=== PATIENT | female | born 1980 | race Caucasian/White ===

== ENCOUNTER 2020-10-17 06:00 | Day surgery (SDC) | payer OTHER, SELFPAY ==
[~2020-10-17] VITALS: Ht 162.6 cm; Wt 63.0 kg
[2020-10-17 06:32] LABS: HCG,QUAL RESULT NEGATIVE (NEGATIVE)
[2020-10-17] MEDS ORDERED: CEFAZOLIN SOD 2 GM in D5W 50 ML IV ONE (07:30)
[2020-10-17] MEDS ORDERED: NEOSTIGMINE METHYLSULFATE 1 MG/ML, 10 ML VIAL IVP ONE (08:09)
[2020-10-17] MEDS ORDERED: MIDAZOLAM HCL 5 MG/5 ML VIAL IVP ONE (08:09)
[2020-10-17] MEDS ORDERED: fentaNYL CITRATE 250 MCG/5 ML AMP IV ONE (08:09)
[2020-10-17] MEDS ORDERED: ROCURONIUM BROMIDE 10 MG/ML (ZEMURON) IV ONE (08:09)
[2020-10-17] MEDS ORDERED: ROPIVACAINE HCL/PF 0.2% EPIDURAL 200 ML PLAST..BAG EP ONE (08:09)
[2020-10-17] MEDS ORDERED: ONDANSETRON HCL 4 MG/2 ML VIAL IVP ONE ×2 (08:09)
[2020-10-17] MEDS ORDERED: WATER FOR IRRIGATION,STERILE 1,000 ML IRRIG.SOLN IR ONE (08:09)
[2020-10-17] MEDS ORDERED: BUPIVACAINE /PF 0.5% 30 ML VIAL INJ ONE (08:09)
[2020-10-17] MEDS ORDERED: DEXTROSE 50% JECT 50 ML DISP.SYRIN IVP ONE (08:09)
[2020-10-17] MEDS ORDERED: PROPOFOL 200MG/ 20ML VIAL (DIPRIVAN) IV ONE (08:09)
[2020-10-17] MEDS ORDERED: NS IRRIG SOLN 1000 ML IR ONE (08:09)
[2020-10-17] MEDS ORDERED: LIDOCAINE 1% 10 MG/ML, 20 ML MDV INJ ONE (08:09)
[2020-10-17] MEDS ORDERED: GLYCOPYRROLATE 0.2 MG/ML VIAL IJ ONE (08:09)
[2020-10-17] MEDS ORDERED: METOCLOPRAMIDE HCL 10 MG/2 ML VIAL IVP ONE (08:09)
[2020-10-17] MEDS ORDERED: SEVOFLURANE 15 MIN GAS INH ONE (08:09)
[2020-10-17] MEDS ORDERED: LIDOCAINE/EPI 1% 1:100000 20 ML VIAL INJ ONE (08:09)
[2020-10-17] MEDS ORDERED: HYDROcodone/ACETAMIN 5-325 MG TAB (NORCO/ VICODIN) PO PRN (10:15)
[2020-10-17] MEDS ORDERED: ONDANSETRON HCL 4 MG/2 ML VIAL IVP PRN ×2 (10:15→10:45)
[2020-10-17] MEDS ORDERED: OXYCODONE/ACETAMINOPHEN 5-325 TABLET PO PRN ×2 (10:15)
[2020-10-17] MEDS ORDERED: LR 1,000 ML IV SCH (10:45)
[2020-10-17] MEDS ORDERED: KETOROLAC TROMETHAMINE 30 MG VIAL IVP PRN ×3 (10:45)
[2020-10-17] MEDS ORDERED: HYDROmorphone 1 MG INJ. 1 MG/ML AMPUL IVP PRN ×2 (10:45)
[2020-10-17] MEDS ORDERED: METOCLOPRAMIDE HCL 10 MG/2 ML VIAL IVP PRN (10:45)
[2020-10-17] MEDS ORDERED: OXYCODONE/ACETAMINOPHEN 5-325 TABLET ONE (12:18)
[2020-10-17] MEDS ORDERED: KETOROLAC TROMETHAMINE 30 MG VIAL IVP ONE (14:00)
--- NOTE | 2020-10-17 15:21 | NUR ---
PATIENT LATE ENTRY DUE TO PATIENT CARE 1400 RECEIVED PATIENT FROM [facility] S/P ROBOTIC ASSISTED VAGINAL HYSTERECTOMY WITH VAGINAL REPAIR. ALERT ORIENTED. PATIENT TRANSFERRED FROM [facility] TO BED INDEPENDENTLY WITHOUT PROBLEM. PATIENT ALREADY MET CRITERIA FOR DISCHARGE FROM OUTPATIENT SURGERY BUT SIGNIFICANT OTHER IS NOT ABLE TO PICK HER UP UNTIL 5 PM AND NOBODY WILL RECEIVE HER AT HOME IF PUBLIC TRANSPORT IS USED. SALINE LOCK RIGHT FA 20G, PATIENT DENIES PAIN BUT STATED THAT SHE IS HUNGRY. PROVIDED SANDWICHES, TEA, CRANBERRY JUICE AND PUDDING. ORIENTED TO ROOM SET UP, PT VERBALIZED UNDERSTANDING. PATIENT ATE 80% OF FOOD WITH NO C/O ABDO PAIN OR VOMITING WILL CONTINUE TO MONITOR
[2020-10-17 16:00] VITALS: BP_SYST 112
== END 2020-10-18 14:05 | disposition home or self-care (01) ==
LOC: SMU 06:00 → SDS 06:00
PROVIDERS: ATTEND Specialist
DX: N93.8 Other specified abnormal uterine and vaginal bleeding (principal); N81.4 Uterovaginal prolapse, unspecified; N80.9 Endometriosis, unspecified; D25.2 Subserosal leiomyoma of uterus; Z79.899 Other long term (current) drug therapy; Z98.890 Other specified postprocedural states; Z20.828 Contact with and (suspected) exposure to other viral communicable diseases
CPT/HCPCS: 58552; 64488; 76942; 84703; 88307; C1727; J0690; J2001; J2250; J2405; J2704; J2710; J2765; J3010; J3490 ×2; J7060; J7120; S2900; U0003; E0190

== ENCOUNTER 2021-11-01 05:45 | Day surgery (SDC) | payer OTHER, SELFPAY ==
[~2021-11-01] VITALS: Ht 162.6 cm; Wt 68.0 kg
[2021-11-01] MEDS ORDERED: LR 1,000 ML IV.SOLN IV ONE (07:56)
[2021-11-01] MEDS ORDERED: PHENYLEPHRINE HCL 10 MG/ML VIAL (NEOSYNEPHRINE) IV ONE (07:56)
[2021-11-01] MEDS ORDERED: SUCCINYLCHOLINE CHLORIDE 20 MG/ML(QUELICIN) IVP ONE (07:56)
[2021-11-01] MEDS ORDERED: BUPIVACAINE /EPINEPHRINE/PF 0.25% 30 ML VIAL INJ ONE (07:56)
[2021-11-01] MEDS ORDERED: SEVOFLURANE 15 MIN GAS INH ONE (07:56)
[2021-11-01] MEDS ORDERED: CEFAZOLIN 2 GM IVPB PREMIX 50 ML IV ONE (07:56)
[2021-11-01] MEDS ORDERED: ALFENTANIL HCL 1000 MCG/2 ML AMP IVP ONE (07:56)
[2021-11-01] MEDS ORDERED: MIDAZOLAM HCL 5 MG/5 ML VIAL IVP ONE (07:56)
[2021-11-01] MEDS ORDERED: PROPOFOL 200MG/ 20ML VIAL (DIPRIVAN) IV ONE (07:56)
[2021-11-01] MEDS ORDERED: GLYCOPYRROLATE 0.2 MG/ML VIAL IJ ONE (07:56)
[2021-11-01] MEDS ORDERED: METOCLOPRAMIDE HCL 10 MG/2 ML VIAL IVP ONE (07:56)
[2021-11-01] MEDS ORDERED: ONDANSETRON HCL 4 MG/2 ML VIAL IVP ONE (07:56)
[2021-11-01] MEDS ORDERED: BUPIVACAINE LIPOSOME/PF 266 MG/20 ML VIAL INFIL ONE (08:23)
[2021-11-01] MEDS ORDERED: HYDROcodone/ACETAMIN 5-325 MG TAB (NORCO/ VICODIN) PO PRN (09:30)
[2021-11-01] MEDS ORDERED: ONDANSETRON HCL 4 MG/2 ML VIAL IVP PRN (09:30)
[2021-11-01] MEDS ORDERED: OXYCODONE/ACETAMINOPHEN 5-325 TABLET PO PRN ×2 (09:30)
[2021-11-01] MEDS ORDERED: LR 1,000 ML IV SCH (09:45)
[2021-11-01] MEDS ORDERED: HYDROmorphone 1 MG/ML INJ. CARTRIDGE IVP PRN (09:45)
[2021-11-01] MEDS ORDERED: HYDROmorphone 2 MG/ML VIAL IVP PRN (09:45)
[2021-11-01] MEDS ORDERED: KETOROLAC TROMETHAMINE 30 MG VIAL IVP PRN (09:45)
[2021-11-01] MEDS ORDERED: HYDROmorphone 1 MG/ML INJ. CARTRIDGE ONE (10:05)
[2021-11-01 12:15] VITALS: BP_SYST 122
[2021-11-01] MEDS ORDERED: KETOROLAC TROMETHAMINE 30 MG VIAL ONE (12:52)
[2021-11-01] MEDS ORDERED: KETOROLAC TROMETHAMINE 30 MG VIAL IVP ONE (13:00)
== END 2021-11-01 15:00 | disposition home or self-care (01) ==
LOC: SMU 05:45 → SDS 05:45
PROVIDERS: ATTEND Specialist
DX: N80.9 Endometriosis, unspecified (principal); R10.2 Pelvic and perineal pain; N94.10 Unspecified dyspareunia; Z20.822 Contact with and (suspected) exposure to COVID-19; Z79.899 Other long term (current) drug therapy
CPT/HCPCS: 57530; 58660; 88307; C1727; C9290; J0330; J0690; J1170; J1885; J2250; J2370; J2405; J2704; J2765; J3490 ×3; J7120; U0003